=== PATIENT | female | born 1995 | race African-American/Black ===

== ENCOUNTER → 2017-08-22 | Emergency (ER) | payer OTHER ==
[2017-08-22 14:12] VITALS: BP 108/84; PULSE 79; TEMP 98.4; BMI 30.5
== END | disposition left against medical advice (07) ==
LOC: JER 13:54
DX: Z53.21 Procedure and treatment not carried out due to patient leaving prior to being seen by health care provider (principal)
CPT/HCPCS: 99281-25

== ENCOUNTER 2019-03-09 10:17 | Emergency (ER) | payer OTHER ==
[2019-03-09 10:20] VITALS: TEMP 98.6; BMI 29.2
--- NOTE | 2019-03-09 10:34 | PDOC ---
History of Present Illness - General Chief Complaint: Vaginal Bleeding Stated Complaint: 9WKS/ BLEEDING Time Seen by Provider: 03/09/19 10:34 History Source: Patient Exam Limitations: No Limitations Past History - Travel Traveled outside of the country in the last 30 days: No Close contact w/someone who was outside of country & ill: No - Past Medical History Allergies/Adverse Reactions: Allergies Allergy/AdvReac Type Severity Reaction Status Date / Time No Known Allergies Allergy Verified 03/09/19 10:20 Home Medications: Ambulatory Orders Vit Calc,Iron,Folic [ Vitamins] 1 each PO DAILY 02/28/17 Asthma: No Cancer: No Cardiac Disorders: No COPD: No Diabetes: No HTN: No Seizures: No Thyroid Disease: No - Reproductive History (#): 3 Para: 2 - Immunization History Immunization Up to Date: Yes - Suicide/Smoking/Psychosocial Hx Smoking History: Never smoked Have you smoked in the past 12 months: No Number of Cigarettes Smoked Daily: 10 Cigars Per Day: 0 Hx Alcohol Use: No Drug/Substance Use Hx: No Substance Use Type: None Hx Substance Use Treatment: No Review of Systems - Review of Systems Able to Perform ROS?: Yes Comments:: 03/09/19 10:47 CONSTITUTIONAL: Absent: fever, chills, diaphoresis, generalized weakness, malaise, loss of appetite HEENT: Absent: rhinorrhea, nasal congestion, throat pain, throat swelling, difficulty swallowing, mouth swelling, ear pain, eye pain, visual Changes CARDIOVASCULAR: Absent: chest pain, loss of consciousness, palpitations, irregular heart rate, peripheral edema RESPIRATORY: Absent: cough, shortness of breath, dyspnea with exertion, orthopnea, wheezing, stridor, hemoptysis GASTROINTESTINAL: Present: lower abdominal pain Absent: abdominal pain, abdominal distension, nausea, vomiting, diarrhea, constipation, melena, hematochezia GENITOURINARY: Present: vaginal bleeding Absent: dysuria, frequency, urgency, hesitancy, hematuria, flank pain, genital pain MUSCULOSKELETAL: Absent: myalgia, arthralgia, joint swelling SKIN: Absent: rash, itching, pallor HEMATOLOGIC/IMMUNOLOGIC: Absent: easy bleeding, easy bruising, lymphadenopathy, frequent infections ENDOCRINE: Absent: unexplained weight gain, unexplained weight loss, heat intolerance, cold intolerance NEUROLOGIC: Absent: headache, focal weakness or paresthesias, dizziness, unsteady gait, seizure, mental status changes, bladder or bowel incontinence PSYCHIATRIC: Absent: anxiety, depression, suicidal or homicidal ideation, hallucinations. Is the patient limited Kinyarwanda proficient: No *Physical Exam - Vital Signs Last Vital Signs Temp Pulse Resp BP Pulse Ox 98.6 F 111 H 18 129/63 99 03/09/19 10:17 03/09/19 10:17 03/09/19 10:17 03/09/19 10:17 03/09/19 10:17 - Physical Exam Comments: 03/09/19 10:47 GENERAL: Well developed, well nourished. Awake and alert. No acute distress. HEENT: Normocephalic, atraumatic. PERRLA, EOMI. No conjunctival pallor. Sclera are non- icteric. Moist mucous membranes. Oropharynx is clear. NECK: Supple. Full ROM. No JVD. Carotid pulses 2+ and symmetric, without bruits. No thyromegaly. No lymphadenopathy. CARDIOVASCULAR: Regular rate and rhythm. No murmurs, rubs, or gallops. Distal pulses are 2+ and symmetric. PULMONARY: No evidence of respiratory distress. Lungs clear to auscultation bilaterally. No wheezing, rales or rhonchi. ABDOMINAL: Discomfort throughout the lower abdomen. Soft. Non-distended. No rebound or guarding. No organomegaly. Normoactive bowel sounds. MUSCULOSKELETAL Normal range of motion at all joints. No bony deformities or tenderness. No CVA tenderness. EXTREMITIES: No cyanosis. No clubbing. No edema. No calf tenderness. SKIN: Warm and dry. Normal capillary refill. No rashes. No jaundice. NEUROLOGICAL: Alert, awake, appropriate. Cranial nerves 2-12 intact. No deficits to light touch and temperature in face, upper extremities and lower extremities. No motor deficits in the in face, upper extremities and lower extremities. Normoreflexic in the upper and lower extremities. Normal speech. Toes are down- going bilaterally. Gait is normal without ataxia. PSYCHIATRIC: Cooperative. Good eye contact. Appropriate mood and affect. ED Treatment Course - LABORATORY CBC & Chemistry Diagram: 03/09/19 11:19 03/09/19 11:19 Medical Decision Making - Medical Decision Making 03/09/19 10:48 The patient is a 23 y/o F , presents to the ER for vaginal bleeding starting this morning. Pt reports that she is 9 weeks by dates. LMP 12/30. She states that the blood is dark brown in color and notes associated lower abdominal cramping. The bleeding occurs after she wipes when using the bathroom. Denies using more than one pad an hour or passing blood clots. She states the pain is worse when sitting. She has been evaluated by her [facility] but not yet had an ultrasound. Denies fevers, chills, n/v/d, urinary symptoms. A/P: Vaginal bleeding DDx: bleeding in early , spontaneous , missed ab, ectopic Labs, urine, TVUS ordered Reglan and tylenol Re-evaluate. 03/09/19 13:23 Cramping resolved after tylenol US with IUP and a HR of 166 Blood type B+ Urine negative for infection Early vs bleeding in early DC home with OB follow up and strict return precautions I discussed the physical exam findings, ancillary test results and final diagnoses with the patient. I answered all of the patient's questions. The patient was satisfied with the care received and felt comfortable with the discharge plan and treatment plan. The Patient agrees to follow up with the primary care physician/specialist within 24-72 hours. Return precautions were given. *DC/Admit/Observation/Transfer Diagnosis at time of Disposition: Vaginal bleeding affecting early - Discharge Dispostion Disposition: HOME Condition at time of disposition: Stable Decision to Admit order: No - Referrals Referrals: Brenda Rodriguez CNM [Primary Care Provider] - - Patient Instructions Printed Discharge Instructions: DI for Vaginal Bleeding During Additional Instructions: You were evaluated for your vaginal bleeding today Your ultra sound showed a single with a heart rate of 166 Your Blood type is B + You may take Tylenol 650mg every 6 hours as needed for pain not to exceed 3, 000mg a day Follow up with your [facility] on Monday for re-evaluation Return to the ER if you develop increased bleeding (clots/using more than one pad per hour), vomiting, abdominal pain, lightheadedness or if you have any changes in your symptoms - Post Discharge Activity Forms/Work/School Notes: Back to Work
[2019-03-09] MEDS ORDERED: METOCLOPRAMIDE HCL 10 MG TABLET (FP) PO ONE ×2 (10:43→10:59)
[2019-03-09] MEDS ORDERED: ACETAMINOPHEN 325 MG TABLET (FP) PO ONE (10:43)
[2019-03-09] MEDS ORDERED: ACETAMINOPHEN 325 MG TABLET (FP) ONE (10:59)
--- NOTE | 2019-03-09 11:17 | PDOC ---
*Physical Exam - Vital Signs Last Vital Signs Temp Pulse Resp BP Pulse Ox 98.6 F 111 H 18 129/63 99 03/09/19 10:17 03/09/19 10:17 03/09/19 10:17 03/09/19 10:17 03/09/19 10:17 ED Treatment Course - LABORATORY CBC & Chemistry Diagram: 03/09/19 11:19 03/09/19 11:19 Medical Decision Making - Medical Decision Making 03/09/19 11:16 Pt seen by Midlevel Provider under my direct supervision Pt interviewed and examined Ancillary studies reviewed I agree with plan as outlined by Midlevel Provider *DC/Admit/Observation/Transfer Diagnosis at time of Disposition: Vaginal bleeding affecting early - Discharge Dispostion Disposition: HOME Condition at time of disposition: Stable - Referrals Referrals: Brenda Rodriguez CNM [Primary Care Provider] - - Patient Instructions Printed Discharge Instructions: DI for Vaginal Bleeding During Additional Instructions: You were evaluated for your vaginal bleeding today Your ultra sound showed a single with a heart rate of 166 Your Blood type is B + You may take Tylenol 650mg every 6 hours as needed for pain not to exceed 3, 000mg a day Follow up with your [facility] on Monday for re-evaluation Return to the ER if you develop increased bleeding (clots/using more than one pad per hour), vomiting, abdominal pain, lightheadedness or if you have any changes in your symptoms - Post Discharge Activity Forms/Work/School Notes: Back to Work
[2019-03-09 11:46] LABS: PH,URINE 5.5 (5.0-8.0); URINE APPEARANCE CLEAR; URINE BILIRUBIN NEGATIVE (NEGATIVE); URINE COLOR YELLOW; URINE GLUCOSE (UA) NEGATIVE (NEGATIVE); URINE KETONE NEGATIVE (NEGATIVE); URINE LEUK ESTERASE NEGATIVE (NEGATIVE); URINE NITRITE NEGATIVE (NEGATIVE); URINE PROTEIN NEGATIVE (NEGATIVE); URINE UROBILINOGEN 0.2 mg/dL (0.2-1.0)
[2019-03-09 11:50] LABS: BASO % 0.3 % (0-2.0); HEMATOCRIT 35.1 % (32.4-45.2); LYMPH % 30.3 % (8-40); MCH 29.4 pg (25.7-33.7); MCHC 34.1 g/dl (32.0-36.0); MEAN CELL VOLUME 86.3 fl (80-96); MEAN PLT VOLUME 7.6 fl (7.5-11.1); MONO % 5.4 % (3.8-10.2); PLATELET COUNT 202 K/MM3 (134-434); RBC 4.07 M/mm3 (3.60-5.2); RDW 11.9 % (11.6-15.6); WHITE BLOOD COUNT 7.4 K/mm3 (4.0-10.0)
[2019-03-09 12:01] LABS: ALBUMIN 3.3 g/dl (3.4-5.0); BILIRUBIN,TOTAL 0.2 mg/dL (0.2-1); CALCIUM 9.2 mg/dL (8.5-10.1); CREATININE 0.6 mg/dL (0.55-1.3); TOT PROT 6.2 g/dl (6.4-8.2)
[2019-03-09 13:36] VITALS: BP 114/55; PULSE 68
== END 2019-03-09 13:37 | disposition home or self-care (01) ==
LOC: JER 10:17
DX: O26.891 Other specified pregnancy related conditions, first trimester (principal); O20.8 Other hemorrhage in early pregnancy; Z3A.09 9 weeks gestation of pregnancy
CPT/HCPCS: 36415; 76801-TC; 80053; 81003; 84702; 85025; 86850; 86900; 86901; 87086; 99282-25